=== PATIENT | male | born 1950 | race Caucasian/White ===

== ENCOUNTER 2019-03-12 20:00 | Outpatient (CLI) | payer MEDICARE, OTHER, SELFPAY | END 2019-03-12 20:01 | disposition home or self-care (01) | LOC: SLEEP 03-13 09:21 | PROVIDERS: Family Provider Internal Medicine; PCP Internal Medicine; Visit Provider Internal Medicine | DX: G47.33 Obstructive sleep apnea (adult) (pediatric) (principal) | CPT/HCPCS: 95810; 95811 ==

== ENCOUNTER 2019-04-26 08:43 | Outpatient (CLI) | payer MEDICARE, OTHER, SELFPAY ==
--- NOTE | 2019-04-26 08:53 | CT_ITS ---
WS: [id number] LDCT LUNG CANCER SCREENING TECHNIQUE: Noncontrast CT of the chest with coronal and sagittal reformatted images. CLINICAL INFORMATION: NICOTINE DEPENDENCE COMPARISON: CT chest October 11, 2014 DLP: 88.76 mGy.cm DIvol: 2.[address] scans at [facility] use at least one of these dose optimization techniques: automat ed exposure control; mA and/or kV adjustment per patient size (includes targeted exams where dose is matched to clinical indication); or iterative reconstruction. FINDINGS: Both lungs are well aerated. 3.7 mm noncalcified pulmonary nodule left lower lobe laterally stable si nce 2014. No other suspicious pulmonary opacities. Slight fibrosis/subsegmental atelectasis in the lo wer lobes. Mild chronic emphysematous changes. Aortic calcification. No mediastinal or hilar lymphadenopathy. Adrenal glands are normal. Small left renal cyst measuring 1.5 CM. Splenic hemangioma or cyst measuring 4.[address]/CT lung screening [id number] IMPRESSION: LUNG-RADS: 2-Benign Appearance or Behavior FOLLOW UP: 12 Month: Continue annual screening with LDCT
== END 2019-04-26 08:44 | disposition home or self-care (01) ==
LOC: RAD 08:48
PROVIDERS: Family Provider Internal Medicine; PCP Internal Medicine; Visit Provider Internal Medicine Critical Care Medicine
DX: Z12.2 Encounter for screening for malignant neoplasm of respiratory organs (principal); F17.210 Nicotine dependence, cigarettes, uncomplicated
CPT/HCPCS: G0297

== ENCOUNTER 2020-03-06 10:00 | Outpatient (CLI) | payer MEDICARE, OTHER, SELFPAY ==
--- NOTE | 2020-03-06 10:07 | CT_ITS ---
WS: [id number] LDCT LUNG CANCER SCREENING TECHNIQUE: Noncontrast CT of the chest with coronal and sagittal reformatted images. CLINICAL INFORMATION: NICOTINE DEPENDENCE COMPARISON: April 26, 2019 DLP: 59.73 mGy.cm DIvol: 1.[address] scans at [facility] use at least one of these dose optimization techniques: automat ed exposure control; mA and/or kV adjustment per patient size (includes targeted exams where dose is matched to clinical indication); or iterative reconstruction. FINDINGS: Stable 3.8 mm noncalcified pulmonary nodule left lower lobe. No other suspicious pulmonary opacities. Subsegmental atelectasis right lower lobe. Mild chronic emphysematous changes. No mediastinal or hilar lymphadenopathy. Aortic calcification. Adrenal glands are normal. CT/CT lung screening [id number] IMPRESSION: LUNG-RADS: 2-Benign Appearance or Behavior FOLLOW UP: 12 Month: Continue annual screening with LDCT
== END 2020-03-06 10:01 | disposition home or self-care (01) ==
LOC: RAD 10:05
PROVIDERS: PCP Internal Medicine; Visit Provider Internal Medicine Critical Care Medicine
DX: Z12.2 Encounter for screening for malignant neoplasm of respiratory organs (principal); F17.210 Nicotine dependence, cigarettes, uncomplicated
CPT/HCPCS: 71271

== ENCOUNTER 2021-03-20 09:49 | Outpatient (CLI) | payer MEDICARE, OTHER, SELFPAY ==
--- NOTE | 2021-03-20 09:30 | CT_ITS ---
WS: [id number] LDCT LUNG CANCER SCREENING TECHNIQUE: Noncontrast CT of the chest with coronal and sagittal reformatted images. CLINICAL INFORMATION: Nicotine Dependence COMPARISON: CT March 06, 2020 DLP: 88.89 mGy.cm DIvol: Mean CTDIvol: 1.60 (mGy) All CT scans at [facility] use at least one of these dose optimization techniques: automat ed exposure control; mA and/or kV adjustment per patient size (includes targeted exams where dose is matched to clinical indication); or iterative reconstruction. FINDINGS: Tiny 3.8 mm noncalcified subpleural pulmonary nodule LEFT lower lobe is unchanged. No other suspiciou s pulmonary parenchymal normalities. No acute pulmonary infiltrates. No focal consolidation or pleura l fluid. Mild aortic calcification. Coronary calcification. No axillary lymphadenopathy. No mediastinal or hilar lymphadenopathy. Adrenal glands are normal. Normal GE junction. Hypertrophic changes thoracic spine. CT/CT lung screening [id number] IMPRESSION: LUNG-RADS: 2-Benign Appearance or Behavior FOLLOW UP: 12 Month: Continue annual screening with LDCT
== END 2021-03-20 09:50 | disposition home or self-care (01) ==
PROVIDERS: PCP Internal Medicine; Visit Provider Internal Medicine Critical Care Medicine
DX: Z12.2 Encounter for screening for malignant neoplasm of respiratory organs (principal); F17.210 Nicotine dependence, cigarettes, uncomplicated
CPT/HCPCS: 71271

== ENCOUNTER → 2021-08-06 14:47 | Outpatient (BNVA) | payer MEDICARE, OTHER, SELFPAY | PROVIDERS: PCP Internal Medicine; Visit Provider Internal Medicine Cardiovascular Disease | DX: I25.10 Atherosclerotic heart disease of native coronary artery without angina pectoris (principal); I10 Essential (primary) hypertension; I73.9 Peripheral vascular disease, unspecified; G47.33 Obstructive sleep apnea (adult) (pediatric); E11.9 Type 2 diabetes mellitus without complications; F17.210 Nicotine dependence, cigarettes, uncomplicated; Z79.4 Long term (current) use of insulin | CPT/HCPCS: 99214 ==

== ENCOUNTER 2022-01-25 12:49 | Outpatient (CLI) | payer MEDICARE, OTHER, SELFPAY ==
--- NOTE | 2022-01-25 12:54 | CT_ITS ---
WS: [id number] CT HEAD TECHNIQUE: Noncontrast CT of the head obtained from the skullbase to the vertex. CLINICAL INFORMATION: MENTAL STATUS CHANGE HISTORY OF RECENT FALLS. COMPARISON: CT 8 13,019 DLP: 1141.[address] scans at [facility] use at least one of these dose optimization techniques: automated e xposure control; mA and/or kV adjustment per patient size (includes targeted exams where dose is matc hed to clinical indication); or iterative reconstruction. FINDINGS: Increased attenuation mass involving the LEFT parietal lobe posteriorly with large amount of surround ing edema. Mass measures approximately 2.2 x 2.9 x 2.1 cm AP by transverse by craniocaudal. Diffuse e peter extends into the LEFT frontal lobe and LEFT frontal parietal junction. Mild mass effect in LEFT lateral ventricle. No hydrocephalus. Mild LEFT to RIGHT midline shift measuring 4 mm. 2 additional tiny areas of increased attenuation suspicious for hemorrhage in the inferior RIGHT fron marbin lobe and inferior lateral RIGHT temporal lobe. These measure 4 to 5 mm in maximum dimension. No extra-axial fluid collections. Mild mucosal thickening ethmoid air cells. Mastoid air cells are we ll aerated. Normal posterior nasopharynx. Vascular calcification. Partially visualized RIGHT parotid lesion measuring 9 mm likely represents adenoma or intraparotid lymph node. CT/CT head wo con* [id number] IMPRESSION: 1. Increased attenuation mass/hematoma involving the LEFT parietal lobe measur ing 2.2 x 2.9 x 2.1 cm. Large amount of surrounding edema in the LEFT parietal lobe extending into the LEFT frontal lobe. Findings suspicious for hemorrhagic neoplasm, metastatic disease, versus less likely benign hematoma. 2. This can be further evaluated with MRI of the head without and with gadolin ium enhancement for better characterization. 3. 2 additional tiny hazy areas of increased attenuation suspicious for trauma tic hemorrhage in the inferior RIGHT frontal lobe and inferior lateral RIGHT te mporal lobe. These measure 4 to 5 mm in maximum dimension. 4. Mild mass effect in the LEFT lateral ventricle. No hydrocephalus. 5. Mild LEFT to RIGHT midline shift measuring 4 mm. 6. Normal posterior fossa and 4th ventricle. Basilar cisterns remain patent. Notified Grace Nash MD at 01/25/2022 1:18 PM. Patient transferred to the ER for further evaluation.
== END 2022-01-25 12:50 | disposition home or self-care (01) ==
LOC: RAD 12:50
PROVIDERS: PCP Internal Medicine; Visit Provider Internal Medicine
DX: R41.82 Altered mental status, unspecified (principal)
CPT/HCPCS: 70450

== ENCOUNTER 2022-01-25 13:29 | Emergency (ER) | payer MEDICARE, OTHER, SELFPAY ==
[2022-01-25] VITALS (15 sets, daily range): BP systolic 139–184; BP diastolic 62–118; PULSE 55–79; RESP 10–20; TEMP 36.4; O2SAT 94–97
[2022-01-25 14:23] LABS: Basophils # 0.1 10^3/uL (0.0-0.1); Eosinophils # 0.2 10^3/uL (0.0-0.8); Hematocrit 47.6 % (42.0-52.0); Hemoglobin 15.8 g/dL (11.7-16.6); Lymphocytes # 0.9 10^3/uL (0.8-4.8); Lymphocytes % 11.6 %; Mean Corpuscular HGB Conc 33.2 g/dL (30.0-36.0); Mean Corpuscular Hemoglobin 29.4 pg (28.0-34.0); Mean Corpuscular Volume 88.6 fl (80-94); Mean Platelet Volume 11.8 fL (7.4-10.4); Monocytes # 0.5 10^3/uL (0.2-0.9); Monocytes % 6.2 %; Neutrophils # 6.28 10^3/uL (1.8-7.7); Neutrophils % 77.8 %; Nucleated Red Blood Cells % 0 %; Platelet Count 204 10^3/cmm (130-400); Red Blood Count 5.37 10^6/uL (4.1-5.3); Red Cell Distribution Width 12.8 % (12.1-15.1); White Blood Count 8.1 10^3/uL (4.0-10.0)
--- NOTE | 2022-01-25 14:32 | ECG_ITS ---
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 Measurements Intervals Odem Rate: 62 P: 0 ID: 0 QRS: -70 QRSD: 144 T: 92 QT: 460 QTc: 467 Interpretive Statements ATRIAL FIBRILLATION INTRAVENTRICULAR CONDUCTION DELAY [130+ ms QRS DURATION] Compared to ECG 09/22/2018 05:36:09 Sinus rhythm no longer present First degree AV block no longer present Myocardial infarct finding no longer present Electronically Signed On 01-25-2022 18:01:04 SAFETY ATTENDANT by Eliot Gilbert M.D. [id number]
[2022-01-25 14:35] LABS: INR 0.95 (0.8-1.2)
[2022-01-25 14:36] LABS: Partial Thromboplastin Time 43.2 SECONDS (23.9-36.7)
[2022-01-25 14:42] LABS: Alanine Aminotransferase 16 U/L (0-41); Albumin Level 3.6 g/dL (3.5-5.2); Alkaline Phosphatase 138 U/L (40-130); Aspartate Amino Transferase 28 U/L (0-40); Blood Urea Nitrogen 47 mg/dL (8-23); Calcium 9.3 mg/dL (8.5-10.5); Carbon Dioxide 23 mmol/L (22-29); Chloride 98 mmol/L (98-107); Globulin 3.7 g/dL (1.3-4.6); Glucose 360 mg/dL (65-115); Osmolality Calculated 303 mOsm/kg (285-295); Sodium 133 mmol/L (136-145); Total Bilirubin 0.3 mg/dL (0.15-1.2); Total Protein 7.3 g/dL (6.6-8.7)
[2022-01-25 14:43] LABS: Anion Gap 16.1 (5-19); Potassium 4.1 mmol/L (3.5-5.1)
--- NOTE | 2022-01-25 15:46 | W.ED.GENADLT ---
Documented by User: Grayson Jefferson DO 01/25/22 18:30 HPI - General Adult General: Chief complaint: General Medical Stated complaint: sent over from CT Time Seen by Provider: 01/25/22 14:12 Source: patient Mode of arrival: ambulatory History of Present Illness: 71-year-old male presents emergency room from radiology department. He was sent to the radiology for CT of his head by his primary care doctor for recent onset of weakness multiple falls and mental status changes. Nurses notes make mention that he has no symptoms however patient is symptomatic. CT today found to left parietal lobe mass measuring 2.2 x 2.0 x 2.1 with a large amount of surrounding edema extending into the left frontal lobe there are some hazy areas adjacent to it concerning for swelling or possible hemorrhage there is a second mass in the right inferior frontal lobe and inferior lateral temporal lobe this measures 4 to 5 mm in largest dimension. There is a mass-effect on the left lateral ventricle there is a left to right midline shift of 4 mm. He has not had any vomiting. Visual changes to this point. He is awake and alert and able to give a good history and discuss treatment alternatives with myself and his family. Onset (ago): week(s) Location: head Severity: mild Relieving factors: none Exacerbating factors: none Associated symptoms: Reports confusion; Deny chest pain, cough, diaphoresis, decreased appetite, dyspnea, fevers/chills, headache(s), malaise, nausea, rash, palpitations, seizures, short of breath, syncope, vomiting or weakness Treatments prior to arrival: none Review of Systems Const: Denies: fever(s), chills, malaise or diaphoresis ENMT: Denies: throat pain, ear or mastoid pain, nasal discharge or nasal congestion Card: Denies: chest pain, palpitations or syncope Resp: Denies: dyspnea GI: Denies: abdominal pain, nausea or vomiting : Denies: flank pain, dysuria, urinary frequency or urinary urgency Skin/Breast: Denies: rash Neuro: Reports: confusion; Denies: headache(s) [facility] ED PFSH: Medical History CAD (coronary artery disease) COPD (chronic obstructive pulmonary disease) Diabetes mellitus Neuropathy PVD (peripheral vascular disease) Varicose veins of left lower extremity with other complications Surgical History S/P angioplasty S/P cataract extraction S/P hernia repair S/P trigger finger release Stented coronary artery Family History Other CAD (coronary artery disease) Diabetes Hypertension Social History Smoking and tobacco status: current every day smoker (2 ppd) cigarettes Packs smoked per day: 2 Years cigarettes smoked: 57 [ Other cigarette details: Started at age 13] Second hand smoke exposure: Yes Smoking risk assessment/counseling performed?: Yes Alcohol intake: never Counseling given: No Counseling given: No Lives independently: Yes Household members: spouse Marital status: Current occupational status: retired History of recent travel: No Current gender identity: Male Physical Exam Const: GENERAL APPEARANCE: cooperative and comfortable ORIENTATION/CONSCIOUSNESS: Yes awake, Yes oriented to person, Yes oriented to place and Yes oriented to time HENMT: COMMON NORMALS: normocephalic, atraumatic, hearing grossly normal bilaterally, external ears normal, EAC's normal, TM's normal bilaterally, Normal nasal mucous membranes and turbinates present, moist oral mucous membranes and oropharynx normal HEAD & SCALP: normocephalic and atraumatic NOSE: Normal nasal mucous membranes and turbinates present EXTERNAL EAR: Yes external ears normal EXTERNAL AUDITORY CANAL: EAC's normal TYMPANIC MEMBRANE: TM's normal bilaterally Resp: COMMON NORMALS: normal respiratory effort, No retractions, No use of accessory muscles and clear to auscultation bilaterally AUSCULTATION: clear to auscultation bilaterally Cardio: COMMON NORMALS: regular rate, regular rhythm and No murmurs present (Cardio) RATE: regular rate RHYTHM: regular rhythm GI: COMMON NORMALS: Soft to palpation and No hepatosplenomegaly present AUSCULTATION: Yes normoactive bowel sounds PALPATION: Yes Soft to palpation, No Tenderness to palpation present (GI), No Guarding due to palpation present (GI) and Yes No hepatosplenomegaly present Extremity: COMMON NORMALS: normal to inspection, capillary refill normal, no clubbing, cyanosis or edema, no calf tenderness and no pedal edema Neuro: SENSORIUM/ORIENTATION: Yes oriented to person, Yes oriented to place and Yes oriented to time Skin: COMMON NORMALS: no rashes or lesions noted GENERAL SKIN EXAM: no rashes or lesions noted Course Vital Signs: Vital signs: Vital Signs Temperature 97.5 F L 01/25/22 13:53 Pulse Rate 76 01/25/22 20:05 Respiratory Rate 17 01/25/22 20:05 Blood Pressure 139/62 01/25/22 20:05 Pulse Oximetry 94 01/25/22 20:05 Oxygen Delivery Me thod 01/25/22 20:05 MDM - General Adult Medical Decision Making Encouraged patient to allow us to make transfer to have neurosurgical evaluation. We will start him on Decadron. Staff is beginning to call for possible transfer to facilities with neurosurgery capability. Transfers have been difficult because of bed availability. [facility] neurosurgery is willing to take the patient but there requesting MRI head with IV contrast prior to transferring patient. Patient was given fluids prior to MRI and he will be given more fluids again his blood pressure is running high there was evidence of bleeding on the MRI per Dr. Woodson we will start him on nicardipine as well. Care signed out to Dr. Huang at change of shift. See final notes for diagnosis and disposition. Medical Records I reviewed the patient's medical records. Lab Data I reviewed the patient's lab results. 01/25/22 14:08 01/25/22 14:08 Radiology Impressions Head MRI 01/25/22 19:04 IMPRESSION: 1. Three probable enhancing hemorrhagic lesions as described, which do raise strong concern for hemorrhagic metastatic foci. These need close follow-up. The dominant left-sided one does cause mild mass effect but no midline shift. The exam is limited by motion, which may obscure other subtle lesions. 2. The findings are similar to the same-day head CT. 3. Age related changes. Laboratory Results WBC 8.1 10^3/uL (4.0-10.0) 01/25/22 14:08 RBC 5.37 10^6/uL (4.1-5.3) H 01/25/22 14:08 Hgb 15.8 g/dL (11.7-16.6) 01/25/22 14:08 Hct 47.6 % (42.0-52.0) 01/25/22 14:08 MCV 88.6 fl (80-94) 01/25/22 14:08 MCH 29.4 pg (28.0-34.0) 01/25/22 14:08 MCHC 33.2 g/dL (30.0-36.0) 01/25/22 14:08 RDW 12.8 % (12.1-15.1) 01/25/22 14:08 Plt Count 204 10^3/cmm (130-400) 01/25/22 14:08 MPV 11.8 fL (7.4-10.4) H 01/25/22 14:08 Neut % (Auto) 77.8 % 01/25/22 14:08 Lymph % (Auto) 11.6 % 01/25/22 14:08 Lyon % (Auto) 6.2 % 01/25/22 14:08 Eos % (Auto) 3.0 % 01/25/22 14:08 Baso % (Auto) 1.0 % 01/25/22 14:08 Neut # (Auto) 6.28 10^3/uL (1.8-7.7) 01/25/22 14:08 Lymph # (Auto) 0.9 10^3/uL (0.8-4.8) 01/25/22 14:08 Lyon # (Auto) 0.5 10^3/uL (0.2-0.9) 01/25/22 14:08 Eos # (Auto) 0.2 10^3/uL (0.0-0.8) 01/25/22 14:08 Baso # (Auto) 0.1 10^3/uL (0.0-0.1) 01/25/22 14:08 Nucleated RBC % (auto) 0 % 01/25/22 14:08 Nucleated RBCs # 0.0 /100WBC 01/25/22 14:08 PT 13.00 SECONDS (12.1-14.9) 01/25/22 14:08 INR 0.95 (0.8-1.2) 01/25/22 14:08 APTT 43.2 SECONDS (23.9-36.7) H 01/25/22 14:08 Sodium 133 mmol/L (136-145) L 01/25/22 14:08 Potassium 4.1 mmol/L (3.5-5.1) 01/25/22 14:08 Chloride 98 mmol/L (98-107) 01/25/22 14:08 Carbon Dioxide 23 mmol/L (22-29) 01/25/22 14:08 Anion Gap 16.1 (5-19) 01/25/22 14:08 BUN 47 mg/dL (8-23) H 01/25/22 14:08 Creatinine 2.6 mg/dL (0.7-1.2) H 01/25/22 14:08 GFR Calculation Not Reportable 01/25/22 14:08 Glucose 360 mg/dL (65-115) H 01/25/22 14:08 Calculated Osmolality 303 mOsm/kg (285-295) H 01/25/22 14:08 Calcium 9.3 mg/dL (8.5-10.5) 01/25/22 14:08 Total Bilirubin 0.3 mg/dL (0.15-1.2) 01/25/22 14:08 AST 28 U/L (0-40) 01/25/22 14:08 ALT 16 U/L (0-41) 01/25/22 14:08 Alkaline Phosphatase 138 U/L (40-130) H 01/25/22 14:08 Total Protein 7.3 g/dL (6.6-8.7) 01/25/22 14:08 Albumin 3.6 g/dL (3.5-5.2) 01/25/22 14:08 Globulin 3.7 g/dL (1.3-4.6) 01/25/22 14:08 Urine Color Yellow (Yellow) 01/25/22 16:19 Urine Appearance Clear (CLEAR) 01/25/22 16:19 Urine pH 6 (5-7) 01/25/22 16:19 Ur Specific Weatherby 1.015 (1.005-1.030) 01/25/22 16:19 Urine Protein 3+ (Negative) H 01/25/22 16:19 Urine Glucose (UA) 4+ (Normal) H 01/25/22 16:19 Urine Ketones Negative (Negative) 01/25/22 16:19 Urine Blood Neg (Negative) 01/25/22 16:19 Urine Nitrate Negative (Negative) 01/25/22 16:19 Urine Bilirubin Neg (Negative) 01/25/22 16:19 Urine Urobilinogen Norm mg/dL (Negative) 01/25/22 16:19 Ur Leukocyte Esterase Negative (Negative) 01/25/22 16:19 Urine RBC 0-4 /hpf (0-2) H 01/25/22 16:19 Urine WBC None /hpf (0-5) 01/25/22 16:19 Ur Squamous Epith Cells 0-4 /hpf (0-5) H 01/25/22 16:19 Amorphous Sediment Not Reportable 01/25/22 16:19 Urine Bacteria Trace /hpf (NONE) 01/25/22 16:19 Discharge Plan Discharge Clinical Impression: Intracranial mass, Intracranial hemorrhage Condition: Stable Prescriptions: No Action cholecalciferol (vitamin D3) 125 mcg (5,000 unit) capsule 125 mcg PO DAILY aspirin [Adult Low Dose Aspirin] 81 mg tablet,delayed release (DR/EC) 81 mg PO QAM gabapentin 300 mg capsule See Rx Instructions .ROUTE .COMPLEX Rx Instructions: 600mg po @04:00,900mg po @10:00,600mg po @16:00 and 600mg po bedtime carvedilol 6.25 mg tablet 9.375 mg PO BID Qty: 270 3RF amlodipine 10 mg tablet 10 mg PO QAM silver sulfadiazine 1 % cream 1 applic TOPICAL BID PRN (Reason: unknown) chlorthalidone 50 mg tablet 50 mg PO QAM amitriptyline 10 mg tablet 10 mg PO BEDTIME sodium bicarbonate 650 mg tablet 650 mg PO QID albuterol sulfate 90 mcg/actuation Hfa Aerosol Inhaler 2 puff INHALATION QID PRN (Reason: Shortness Of Breath) losartan 100 mg tablet 100 mg PO DAILY calcitriol 0.25 mcg capsule 0.25 mcg PO .ON MON,WED,FRI Tresiba FlexTouch U-100 100 unit/mL (3 mL) insulin pen 20 unit SUBCUT QAM pravastatin 40 mg tablet 40 mg PO BEDTIME Plavix 75 mg tablet 75 mg PO QAM Referrals: Grace Nash MD [Primary Care Provider] - Coding Level of Care Code ED 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 for Chg Fwd Exam Detailed Documented by User: Douglas Huang MD 01/25/22 20:33 HPI - General Adult General: Chief complaint: General Medical Stated complaint: sent over from CT Time Seen by Provider: 01/25/22 14:12 PFSH ED PFSH: Medical History CAD (coronary artery disease) COPD (chronic obstructive pulmonary disease) Diabetes mellitus Neuropathy PVD (peripheral vascular disease) Varicose veins of left lower extremity with other complications Surgical History S/P angioplasty S/P cataract extraction S/P hernia repair S/P trigger finger release Stented coronary artery Family History Other CAD (coronary artery disease) Diabetes Hypertension Social History Smoking and tobacco status: current every day smoker (2 ppd) cigarettes Packs smoked per day: 2 Years cigarettes smoked: 57 [ Other cigarette details: Started at age 13] Second hand smoke exposure: Yes Smoking risk assessment/counseling performed?: Yes Alcohol intake: never Counseling given: No Counseling given: No Lives independently: Yes Household members: spouse Marital status: Current occupational status: retired History of recent travel: No Current gender identity: Male Course Vital Signs: Vital signs: Vital Signs Temperature 97.5 F L 01/25/22 13:53 Pulse Rate 76 01/25/22 20:05 Respiratory Rate 17 01/25/22 20:05 Blood Pressure 139/62 01/25/22 20:05 Pulse Oximetry 94 01/25/22 20:05 Oxygen Delivery Me thod 01/25/22 20:05 MDM - General Adult Medical Decision Making Encouraged patient to allow us to make transfer to have neurosurgical evaluation. We will start him on Decadron. Staff is beginning to call for possible transfer to facilities with neurosurgery capability. Transfers have been difficult because of bed availability. [facility] neurosurgery is willing to take the patient but there requesting MRI head with IV contrast prior to transferring patient. Patient was given fluids prior to MRI and he will be given more fluids again his blood pressure is running high there was evidence of bleeding on the MRI per Dr. Woodson we will start him on nicardipine as well. Care signed out to Dr. Huang at change of shift. See final notes for diagnosis and disposition. Patient presents here with brain tumor is excepted at [facility] will transfer there at this time. Lab Data 01/25/22 14:08 01/25/22 14:08 Radiology Impressions Head MRI 01/25/22 19:04
--- NOTE | 2022-01-25 16:17 | MR_ITS ---
WS: [id number] MRI HEAD WITHOUT CONTRAST TECHNIQUE: Sagittal T1, T2 axial, T2 axial FLAIR, axial and coronal T1 images, axial susceptibility w eighted imaging, axial diffusion weighted images, and coronal T2 images were obtained. Gadolinium not administered due to renal insufficiency. Creatinine 2.6. CLINICAL INFORMATION: new brain mass COMPARISON: CT January 25, 2022 FINDINGS: Gadolinium not administered due to renal insufficiency. Lobulated complex T2 hyperintense mass involving the LEFT parietal lobe measuring 2.0 x 2.5 x 1.6 cm AP by transverse by craniocaudal with associated T1 hyperintensity consistent with subacute blood pro ducts and hemosiderin. Large amount of surrounding edema in the LEFT parietal lobe extending into the LEFT posterior frontal and parietal occipital junction. Effacement of the overlying sulci. Mild mass effect on the LEFT lateral ventricle. Edema extends about the LEFT occipital horn. Small amount of e peter extends into the splenium of the corpus callosum. LEFT to RIGHT midline shift measures 2.5 mm. N o hydrocephalus. Basilar cisterns remain patent. Additional smaller areas of hemorrhage involving the RIGHT inferior frontal lobe and RIGHT temporal l obe laterally measuring approximately 7 mm in the RIGHT frontal lobe and 13 mm in the RIGHT temporal lobe. Mild surrounding edema with associated T1 hyperintense subacute blood products and hemosiderin. Findings are suspicious for hemorrhagic metastasis. Moderate small vessel changes. Mild parenchymal volume loss. Normal posterior fossa. Normal vascular flow voids at the skull base. No extra-axial fluid collections. Small amount of fluid in the RIGHT maxillary sinus. Moderate symmet kwame atrophy temporal lobes and hippocampal formations. Normal optic chiasm. MR/MR head wo con* [id number] IMPRESSION: 1. LEFT parietal hemorrhagic mass measuring 2.5 x 2.0 x 1.6 cm AP by transvers e by craniocaudal. Large amount of surrounding edema in the LEFT parietal lobe extending to the frontoparietal junction. Edema extends into the LEFT parietal occipital junction. 2. Edema with mild mass effect in the LEFT lateral ventricle and mild LEFT to RIGHT midline shift measuring 2.5 mm. No hydrocephalus. 3. Smaller hemorrhagic lesions involving the RIGHT inferior frontal and RIGHT lateral temporal lobes also seen on the head CT. Findings suspicious for hemorr hagic metastatic lesions in a patient this age. 4. Moderate small vessel changes. Mild parenchymal volume loss. Notified Grayson Jefferson DO at 01/25/2022 5:20PM.
[2022-01-25 16:30] LABS: Urine Appearance Clear (CLEAR); Urine Color Yellow (Yellow); pH Urine 6 (5-7)
[2022-01-25 16:31] LABS: Add Urine Culture? No; Add Urine Microscopic? YES; Bacteria Urine TRACE /hpf; Bilirubin Urine Neg (Negative); Blood Urine Neg (Negative); Glucose Urine UA 4+ (Normal); Ketones Urine Negative (Negative); Leukocyte Esterase Urine Negative (Negative); Nitrate Urine Negative (Negative); Protein Urine 3+ (Negative); RBC Urine 0-4 /hpf (0-2); Specific Gravity, Urine 1.015 (1.005-1.030); Squamous Epithelial Cell Urine 0-4 /hpf (0-5); Urobilinogen Urine Norm (Negative)
[2022-01-25] MEDS: dexamethasone 10 mg/mL INJ 6 MG IVP (17:26)
[2022-01-25] MEDS: sodium chloride 0.9% 500 ML 999 ML IV (17:26)
[2022-01-25] MEDS: amlodipine 10 mg Tablet PO (17:26)
--- NOTE | 2022-01-25 19:04 | MRR_ITS ---
PROCEDURE INFORMATION: Exam: MR Head With Contrast Exam date and time: 01/25/2022 6:25 PM Age: 71 years old Clinical indication: Abnormal findings; Mass, lump, or localized swelling of head; Head, generalized; Additional info: Head mass TECHNIQUE: Imaging protocol: Magnetic resonance imaging of the head with contrast. Contrast material: MULTIHANCE; Contrast volume: 20 ml; Contrast route: INTRAVENOUS (IV); COMPARISON: MR head wo/w con [id number] 01/25/2022 4:35 PM FINDINGS: Brain: Precontrast exam is not submitted at this time. On this exam, there is a small right frontal likely rim enhancing lesion measuring about 10 mm on series 401, image 13. A right temporal 1 is also possible on series 401, image 9 measuring about 7 mm. A left parietal likely enhancing mass is present, which is likely hemorrhagic as well. In the axial plane it measures up to about 26 x 19 mm. There is a large amount of surrounding vasogenic edema. Slight left LV mass effect. Cerebral ventricles: No midline shift or hydrocephalus. Bones/joints: Unremarkable. Paranasal sinuses: No suspicious or significant sinus disease is apparent. Mastoid air cells: The visualized mastoid air cells are clear. Orbital cavities: Unremarkable. Vasculature: The central flow voids are maintained. Soft tissues: Unremarkable. Other findings: The exam contains a large amount of motion. Mild age-related changes. MR/MR head w con [id number] IMPRESSION: 1. Three probable enhancing hemorrhagic lesions as described, which do raise strong concern for hemorrhagic metastatic foci. These need close follow-up. The dominant left-sided one does cause mild mass effect but no midline shift. The exam is limited by motion, which may obscure other subtle lesions. 2. The findings are similar to the same-day head CT. 3. Age related changes.
[2022-01-25] MEDS: gadobenate dimeglumine 20 mL vial IV (19:11)
[2022-01-25] MEDS: nicardipine 20 MG/200 ML PREMIX 50 MG IV (19:19)
[2022-01-25] MEDS: sodium chloride 0.9% 1,000 ML 999 ML IV (19:19)
== END 2022-01-25 22:11 | disposition other institution, planned readmission (95) ==
PROVIDERS: Family Medicine; Emergency Provider Emergency Medicine; PCP Internal Medicine
DX: I62.9 Nontraumatic intracranial hemorrhage, unspecified (principal); G93.89 Other specified disorders of brain; I25.10 Atherosclerotic heart disease of native coronary artery without angina pectoris; J44.9 Chronic obstructive pulmonary disease, unspecified; E11.9 Type 2 diabetes mellitus without complications; R41.82 Altered mental status, unspecified
CPT/HCPCS: 70450; 70551; 70552; 80053; 81001; 85025; 85610; 85730; 93005; 96361; 96374; 96375; 99285; A9577; J1100; J7030; J7040

== ENCOUNTER 2022-02-15 14:11 | Outpatient (CLI) | payer MEDICARE, OTHER, SELFPAY ==
[2022-02-15 15:09] LABS: Basophils % 0.1 %; Lymphocytes # 0.1 10^3/uL (0.8-4.8); Lymphocytes % 0.7 %; Mean Corpuscular HGB Conc 31.9 g/dL (30.0-36.0); Mean Corpuscular Hemoglobin 28.8 pg (28.0-34.0); Mean Corpuscular Volume 90.2 fl (80-94); Mean Platelet Volume 12.3 fL (7.4-10.4); Monocytes # 0.6 10^3/uL (0.2-0.9); Monocytes % 4.7 %; Neutrophils # 12.85 10^3/uL (1.8-7.7); Neutrophils % 93.8 %; Nucleated Red Blood Cells % 0 %; Platelet Count 129 10^3/cmm (130-400); Red Blood Count 5.21 10^6/uL (4.1-5.3); Red Cell Distribution Width 13.1 % (12.1-15.1); White Blood Count 13.7 10^3/uL (4.0-10.0)
[2022-02-15 15:41] LABS: Alanine Aminotransferase 21 U/L (0-41); Alkaline Phosphatase 59 U/L (40-130); Calcium 8.8 mg/dL (8.5-10.5); Carbon Dioxide 21 mmol/L (22-29); Chloride 103 mmol/L (98-107); Globulin 2.4 g/dL (1.3-4.6); Glucose 270 mg/dL (65-115); Sodium 140 mmol/L (136-145); Total Bilirubin 0.3 mg/dL (0.15-1.2); Total Protein 5.4 g/dL (6.6-8.7)
[2022-02-15 16:24] LABS: Osmolality Calculated 355 mOsm/kg (285-295)
[2022-02-15 16:25] LABS: Anion Gap 20.8 (5-19); Aspartate Amino Transferase 216 U/L (0-40); Potassium 4.8 mmol/L (3.5-5.1)
[2022-02-15 16:26] LABS: Blood Urea Nitrogen 167 mg/dL (8-23)
[2022-02-19 12:03] LABS: Blastomyces Antigen Interpret NEGATIVE; Blastomyces Antigen Result NONE DETECTED
[2022-02-19 12:14] LABS: Histoplasma Antigen (Quant) NONE DETECTED; Histoplasma Antigen Interpreta NEGATIVE; Histoplasma Antigen Specimen SERUM
[2022-02-19 20:39] LABS: Cryptococcal Source SERUM
[2022-02-20 23:54] LABS: Histoplasma Galactomannan Ag <0.2 ng/mL
== END 2022-02-15 14:12 | disposition home or self-care (01) ==
LOC: LAB 14:15
PROVIDERS: PCP Internal Medicine; Visit Provider Internal Medicine
DX: E11.42 Type 2 diabetes mellitus with diabetic polyneuropathy (principal); B39.3 Disseminated histoplasmosis capsulati
CPT/HCPCS: 36415; 80053; 85025; 86403; 87385; 87449